=== PATIENT | male | born 1990 | race Caucasian/White ===

== ENCOUNTER 2023-01-08 01:43 | Emergency (ER) | payer OTHER ==
[~2023-01-08] VITALS: Ht 172.7 cm; Wt 74.0 kg
[2023-01-08 02:02] VITALS: BP 116/66; O2SAT 98
[2023-01-08] MEDS ORDERED: BO1 TP (02:12)
[2023-01-08] MEDS ORDERED: TETANUS, DIPHTHERIA, PERTUSSIS VAC/PF 0.5ML (>10YR OLD) IM ONE (02:30)
[2023-01-08 02:31] VITALS: PULSE 66; RESP 16; TEMP 97.8
== END 2023-01-08 02:31 | disposition home or self-care (01) ==
LOC: ER 01:43
DX: S60.519A Abrasion of unspecified hand, initial encounter (principal); W26.8XXA Contact with other sharp object(s), not elsewhere classified, initial encounter; Y93.9 Activity, unspecified; Y92.89 Other specified places as the place of occurrence of the external cause; Y99.8 Other external cause status
CPT/HCPCS: 90715; 90471; 99283; Z7610